=== PATIENT | female | born 1990 | race Caucasian/White ===

== ENCOUNTER → 2016-10-07 | Outpatient (CLI) | payer MEDICAID | LOC: M OUTALCOH 13:26 | PROVIDERS: ATTEND Psychiatry & Neurology Psychiatry | DX: Z13.9 Encounter for screening, unspecified (principal); Z03.89 Encounter for observation for other suspected diseases and conditions ruled out ==

== ENCOUNTER 2016-11-14 20:47 | Outpatient (CLI) | payer MEDICAID, BC ==
[2016-11-14 21:01] VITALS: BP 130/65
[2016-11-14] MEDS ORDERED: ROBI30SU PO (21:36)
[2016-11-14] MEDS ORDERED: PRENTAB9 PO (21:37)
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
== END 2016-11-14 22:00 | disposition home or self-care (01) ==
LOC: M LDO 20:47
PROVIDERS: ATTEND Obstetrics & Gynecology
DX: O26.892 Other specified pregnancy related conditions, second trimester (principal); Z3A.26 26 weeks gestation of pregnancy; O99.512 Diseases of the respiratory system complicating pregnancy, second trimester; R10.2 Pelvic and perineal pain; M32.9 Systemic lupus erythematosus, unspecified; Z79.899 Other long term (current) drug therapy

== ENCOUNTER 2017-01-08 11:12 | Outpatient (CLI) | payer OTHER ==
[~2017-01-08 11:12] MED LIST: PRENTAB9 PO; ROBI30SU PO
--- NOTE | 2017-01-09 01:01 | IPN ---
DATE OF SERVICE: 01/08/2017 CHIEF COMPLAINT: Cramping. HISTORY OF PRESENT ILLNESS: This patient is a 26-year-old 2, para 0-0-1-0 with an estimated due date (JORDAN) of 02/20/2017, who is currently 33 weeks 5 days estimated gestational age, who reports some irregular contractions for the past day. She reports vaginal spotting after intercourse today this morning. Denies any gross vaginal bleeding and leakage of fluid and reports active movement. This is a patient of Lisa Eddy that is also being followed by the center. PAST MEDICAL HISTORY: History of systemic lupus erythematosus. PAST SURGICAL HISTORY: None. PAST OBSTETRICAL HISTORY: She is a 2, para 0. MEDICATIONS: Include Suzanne, vitamins. ALLERGIES: She has no known drug allergies. SOCIAL HISTORY: She reports history of smoking during her . PHYSICAL EXAMINATION: VITAL SIGNS: Stable. She is afebrile. GENERAL APPEARANCE: Well appearing, no acute distress. She has a category 1 rate tracing with some rare contractions on tachometer. ABDOMEN: Soft, gravid and nontender. CERVICAL EXAM: Her cervix is long and closed. Transvaginal showed a cervical length of 1.9 cm. ASSESSMENT: 1. This patient is a 26-year-old 2, para 0 at 33 weeks 5 days estimated gestational age with a shortened cervix, less than 2 cm, unable to obtain a fibronectin secondary to recent intercourse. Otherwise, clinically no signs of labor. 2. Reassuring status. PLAN: I have discussed further monitoring of patient's complaints along with steroids for lung maturity secondary to her shortened cervix. After consultation with patient and her family, she has opted to followup at her primary provider and declines further management for complaints. MTDD
--- NOTE | 2017-01-09 07:38 | REP ---
OB ULTRASOUND: HISTORY: Obtain cervical length measurement. FINDINGS: Multiple ultrasonographic images of the gravid uterus show a single living intrauterine gestation in the cephalic presentation. Doppler interrogation of the heart shows a heart rate of 128 beats per minute. The cervix measures 1.9 cm in length and there was no evidence of internal os funneling. IMPRESSION: Limited OB ultrasound as described above. Signed by Jesse Hernández DO 01/09/2017 09:54 A
== END 2017-01-08 14:01 | disposition home or self-care (01) ==
LOC: M LDO 11:12
PROVIDERS: ATTEND Obstetrics & Gynecology
DX: O47.03 False labor before 37 completed weeks of gestation, third trimester (principal); Z3A.33 33 weeks gestation of pregnancy; M32.9 Systemic lupus erythematosus, unspecified; O26.893 Other specified pregnancy related conditions, third trimester

== ENCOUNTER → 2017-02-11 | Outpatient (CLI) | payer OTHER ==
--- NOTE | 2017-02-11 15:49 | REP ---
Limited obstetric sonography: History: Systemic lupus. well-being. Biophysical profile. Findings: Scanning demonstrates a viable single intrauterine gestation in a cephalic lie. A fundal placenta is seen without evidence of previa or abruption, grade 2. A small pericardial effusion is noted. The closed cervical length is 2.9 cm. heart rate is recorded 171 beats per minute. CATALINA is normal at 14.6 cm. Biophysical profile score is 8 out of a possible 8. S/D ratio in the umbilical cord artery by Doppler is normal at 2.1. Impression: Small amount of pericardial fluid noted in the fetus. Signed by Jerrod Bergman MD 02/11/2017 04:28 P
== END ==
LOC: M RAD 13:34
PROVIDERS: ATTEND Nurse Practitioner Women's Health
DX: M32.9 Systemic lupus erythematosus, unspecified (principal)

== ENCOUNTER 2017-03-30 08:25 | Emergency (ER) | payer OTHER ==
[~2017-03-30] VITALS: Ht 162.6 cm; Wt 75.9 kg
[2017-03-30 09:21] LABS: BASO % 0.3 % (0.0-1.0); EOS # 0.2 K/mm3 (0.0-0.50); EOS % 1.4 % (0.0-3.0); LARGE UNSTAINED CELL # 0.2 K/mm3 (0.0-0.4); LARGE UNSTAINED CELL % 1.6 % (0.0-4.0); LYMPH # 1.9 K/mm3 (1.5-6.5); LYMPH % 16.2 % (24.0-44.0); MEAN CORPUSCULAR HEMOGLOBIN 30.7 pg (27.0-33.0); MEAN CORPUSCULAR VOLUME 93.2 fl (80.0-96.0); MONO # 0.5 K/mm3 (0.0-0.8); MONO % 4.4 % (0.0-5.0); NEUTROPHILS # 8.7 K/mm3 (1.8-7.7); NEUTROPHILS % 76.1 % (36.0-66.0); PLATELET COUNT, AUTOMATED 299 k/mm3 (150-450); RED CELL DISTRIBUTION WIDTH 14.1 % (11.5-14.5); WHITE BLOOD COUNT 11.4 K/mm3 (4.0-10.0)
[2017-03-30 09:39] LABS: ANION GAP 6 MEQ/L (8-16); BLOOD UREA NITROGEN 8 MG/DL (7-18); CALCIUM LEVEL 8.8 MG/DL (8.5-10.1); CARBON DIOXIDE LEVEL 27 MEQ/L (21-32); CHLORIDE LEVEL 103 MEQ/L (98-107); CREATININE FOR GFR 0.79 MG/DL (0.55-1.02); GLOMERULAR FILTRATION RATE > 60.0 (>60); GLUCOSE, FASTING 91 MG/DL (70-105); POTASSIUM SERUM 3.7 MEQ/L (3.5-5.1); SODIUM LEVEL 136 MEQ/L (136-145)
--- NOTE | 2017-03-30 09:57 | REP ---
SUPINE ABDOMEN: 03/30/2017. HISTORY: Lower abdominal pain. Possible constipation. FINDINGS: Small bowel loops are not abnormally dilated. Scattered small amounts of gas. There are scattered stool and gas in the colon without dilatation in a normal pattern. No abnormal soft tissue calcifications, mass or focal bone lesion. IMPRESSION: 1. Negative supine abdomen. No abnormality of the gas pattern, soft tissue calcifications or focal bone lesion. Signed by Topher Hobbs MD 03/30/2017 08:13 P
[2017-03-30] MEDS ORDERED: DULC10SU2 PR (11:07)
[2017-03-30] MEDS ORDERED: MIRA3350 PO (11:07)
[2017-03-30] MEDS ORDERED: CITR1SOL PO (11:07)
[2017-03-30 11:13] VITALS: BP 140/73
== END 2017-03-30 11:18 | disposition home or self-care (01) ==
LOC: M ED 08:25
DX: K59.00 Constipation, unspecified (principal); F17.200 Nicotine dependence, unspecified, uncomplicated

== ENCOUNTER 2017-11-03 19:59 | Emergency (ER) | payer OTHER, SELFPAY | END 2017-11-04 00:30 | disposition left against medical advice (07) | LOC: M ED 19:59 | DX: Z53.21 Procedure and treatment not carried out due to patient leaving prior to being seen by health care provider (principal) ==

== ENCOUNTER → 2017-11-22 | Outpatient (REF) | payer OTHER ==
[2017-11-22 19:24] LABS: CHLAMYDIA DNA AMPLIFICATION NEGATIVE (NEGATIVE); GC DNA AMPLIFICATION NEGATIVE (NEGATIVE)
== END ==
LOC: M LAB REF 16:55
DX: N39.0 Urinary tract infection, site not specified (principal)

== ENCOUNTER → 2018-01-03 | Outpatient (REF) | payer OTHER ==
[2018-01-04 00:11] LABS: CHLAMYDIA DNA AMPLIFICATION POSITIVE (NEGATIVE); GC DNA AMPLIFICATION NEGATIVE (NEGATIVE)
== END ==
LOC: M LAB REF 18:56
DX: A74.9 Chlamydial infection, unspecified (principal)
CPT/HCPCS: 87591

== ENCOUNTER → 2018-06-28 | Outpatient (REF) | payer OTHER, MEDICAID ==
[2018-06-28 19:46] LABS: CHLAMYDIA DNA AMPLIFICATION NEGATIVE (NEGATIVE); GC DNA AMPLIFICATION NEGATIVE (NEGATIVE)
== END ==
LOC: M LAB REF 16:53
DX: Z11.3 Encounter for screening for infections with a predominantly sexual mode of transmission (principal)
CPT/HCPCS: 87591

== ENCOUNTER → 2018-10-21 | Outpatient (REF) | payer OTHER ==
[~2018-10-21] MED LIST changes: +CITR1SOL PO; +DULC10SU2 PR; +ENBR1INJ SC; +METH2.5T48 PO; +MIRA3350 PO
[2018-10-21 17:01] LABS: CHLAMYDIA DNA AMPLIFICATION NEGATIVE (NEGATIVE); GC DNA AMPLIFICATION NEGATIVE (NEGATIVE)
== END ==
LOC: M LAB REF 10:42
PROVIDERS: ATTEND Physician Assistant Medical
DX: Z11.3 Encounter for screening for infections with a predominantly sexual mode of transmission (principal)

== ENCOUNTER → 2019-02-15 | Outpatient (REF) | payer OTHER, MEDICAID ==
[2019-02-15 21:48] LABS: CHLAMYDIA DNA AMPLIFICATION NEGATIVE (NEGATIVE); GC DNA AMPLIFICATION NEGATIVE (NEGATIVE)
== END ==
LOC: M LAB REF 17:29
PROVIDERS: ATTEND Physician Assistant
DX: R30.0 Dysuria (principal)

== ENCOUNTER → 2019-07-10 | Outpatient (REF) | payer OTHER, MEDICAID ==
[2019-07-10 11:47] LABS: APPEARANCE, URINE CLEAR (CLEAR); BACTERIA, URINE AUTO NEGATIVE (NEGATIVE); BILIRUBIN, URINE AUTO NEGATIVE (NEGATIVE); BLOOD, URINE BLOOD NEGATIVE (NEGATIVE); COLOR, URINE YELLOW (YELLOW); GLUCOSE, URINE (UA) AUTO NEGATIVE (NEGATIVE); KETONE, URINE AUTO NEGATIVE (NEGATIVE); LEUKOCYTE ESTERASE, URINE AUTO TRACE (NEGATIVE); MUCUS, URINE SMALL (NEGATIVE); NITRITE, URINE AUTO NEGATIVE (NEGATIVE); PROTEIN, URINE AUTO NEGATIVE (NEGATIVE); RBC, URINE AUTO 2 /HPF (0-3); SPECIFIC GRAVITY URINE AUTO 1.023 (1.002-1.035); SQUAMOUS EPITHELIAL CELL UR AU 2 /HPF (0-6); UROBILINOGEN, URINE AUTO 0.2 mg/dL (0.0-2.0); WBC, URINE AUTO 1 /HPF (0-3)
[2019-07-10 14:44] LABS: CHLAMYDIA DNA AMPLIFICATION NEGATIVE (NEGATIVE); GC DNA AMPLIFICATION NEGATIVE (NEGATIVE)
== END ==
LOC: M LAB REF 11:34
PROVIDERS: ATTEND Physician Assistant Medical
DX: N39.0 Urinary tract infection, site not specified (principal); B96.20 Unspecified Escherichia coli [E. coli] as the cause of diseases classified elsewhere

== ENCOUNTER → 2019-08-06 | Outpatient (REF) | payer OTHER, MEDICAID ==
[2019-08-06 13:11] LABS: HCG, SERUM QUALITATIVE NEGATIVE (NEGATIVE)
[2019-08-06 13:21] LABS: HCG, SERUM QUANTITATIVE < 1.0 MIU/ML
== END ==
LOC: M LAB REF 12:36
PROVIDERS: ATTEND Physician Assistant Medical
DX: Z32.00 Encounter for pregnancy test, result unknown (principal)

== ENCOUNTER → 2019-09-29 | Outpatient (REF) | payer OTHER | LOC: M LAB REF 18:02 | PROVIDERS: ATTEND Physician Assistant | DX: L02.511 Cutaneous abscess of right hand (principal) ==

== ENCOUNTER → 2021-02-18 | Outpatient (REF) | payer OTHER ==
[2021-02-18 13:29] LABS: URINE PREG TEST NEGATIVE (NEGATIVE)
[2021-02-18 13:41] LABS: APPEARANCE, URINE CLEAR (CLEAR); BACTERIA, URINE AUTO 2+ (NEGATIVE); BILIRUBIN, URINE AUTO NEGATIVE (NEGATIVE); BLOOD, URINE BLOOD NEGATIVE (NEGATIVE); COLOR, URINE STRAW (YELLOW); GLUCOSE, URINE (UA) AUTO NEGATIVE (NEGATIVE); KETONE, URINE AUTO NEGATIVE (NEGATIVE); LEUKOCYTE ESTERASE, URINE AUTO NEGATIVE (NEGATIVE); NITRITE, URINE AUTO NEGATIVE (NEGATIVE); PROTEIN, URINE AUTO NEGATIVE (NEGATIVE); RBC, URINE AUTO 0 /HPF (0-3); SPECIFIC GRAVITY URINE AUTO 1.006 (1.002-1.035); SQUAMOUS EPITHELIAL CELL UR AU 0 /HPF (0-6); UROBILINOGEN, URINE AUTO 0.2 mg/dL (0.0-2.0); WBC, URINE AUTO 0 /HPF (0-3)
== END ==
LOC: M LAB REF 12:23
PROVIDERS: ATTEND Physician Assistant
DX: N39.0 Urinary tract infection, site not specified (principal); Z32.00 Encounter for pregnancy test, result unknown

== ENCOUNTER → 2021-07-07 | Outpatient (REF) | payer OTHER ==
[~2021-07-07] MED LIST changes: +AUGM875T28 PO; +PRENTAB53 PO
[2021-07-07 17:41] LABS: HEMATOCRIT 38.9 % (36.0-47.0); HEMOGLOBIN 12.8 g/dl (12.0-15.5); MEAN CORPUSCULAR HEMOGLOBIN 31.4 pg (27.0-33.0); MEAN CORPUSCULAR HGB CONC 32.9 g/dl (32.0-36.5); MEAN CORPUSCULAR VOLUME 95.6 fl (80.0-96.0); PLATELET COUNT, AUTOMATED 298 10^3/uL (150-450); RED BLOOD COUNT 4.07 10^6/uL (4.00-5.40)
[2021-07-07 18:06] LABS: HCG, SERUM QUANTITATIVE 300 MIU/ML
[2021-07-07 18:27] LABS: HEPATITIS B SURFACE ANTIGEN NEGATIVE (NEGATIVE)
[2021-07-07 18:55] LABS: HEPATITIS C VIRUS ABY INDEX < 0.0 INDEX (<0.8); HIV 1&2 SCREEN CENTAUR NEGATIVE (NEGATIVE)
== END ==
LOC: M LAB REF 16:43
PROVIDERS: ATTEND Advanced Practice Midwife
DX: O36.80X0 Pregnancy with inconclusive fetal viability, not applicable or unspecified (principal); Z32.01 Encounter for pregnancy test, result positive

== ENCOUNTER → 2021-07-08 | Outpatient (REF) | payer OTHER | LOC: M LAB REF 17:21 | PROVIDERS: ATTEND Advanced Practice Midwife | DX: O20.0 Threatened abortion (principal); Z3A.00 Weeks of gestation of pregnancy not specified ==

== ENCOUNTER → 2021-07-10 | Outpatient (REF) | payer OTHER | LOC: M LAB REF 11:19 | PROVIDERS: ATTEND Advanced Practice Midwife | DX: O20.0 Threatened abortion (principal); Z3A.00 Weeks of gestation of pregnancy not specified ==

== ENCOUNTER → 2021-07-14 | Outpatient (REF) | payer OTHER | LOC: M LAB REF 12:53 | PROVIDERS: ATTEND Advanced Practice Midwife | DX: O20.0 Threatened abortion (principal) ==

== ENCOUNTER → 2021-07-16 | Outpatient (REF) | payer OTHER ==
[2021-07-16 16:51] LABS: FREE T3 2.8 PG/ML (2.2-4.0); FREE T4 1.01 NG/DL (0.76-1.46); THYROID STIMULATING HORMONE 0.898 uIU/ML (0.358-3.740)
[2021-07-16 17:06] LABS: PROGESTERONE 6.73 NG/ML
== END ==
LOC: M LAB REF 13:01
PROVIDERS: ATTEND Obstetrics & Gynecology
DX: O20.0 Threatened abortion (principal); Z3A.00 Weeks of gestation of pregnancy not specified

== ENCOUNTER → 2021-07-22 | Outpatient (REF) | payer OTHER ==
[2021-07-22 13:07] LABS: HCG, SERUM QUALITATIVE POSITIVE (NEGATIVE)
[2021-07-22 14:58] LABS: HCG, SERUM QUANTITATIVE 6068 MIU/ML
== END ==
LOC: M LAB REF 12:09
PROVIDERS: ATTEND Advanced Practice Midwife
DX: O36.80X0 Pregnancy with inconclusive fetal viability, not applicable or unspecified (principal); O20.0 Threatened abortion; Z3A.00 Weeks of gestation of pregnancy not specified

== ENCOUNTER 2021-07-27 12:08 | Day surgery (SDC) | payer OTHER ==
[~2021-07-27] VITALS: Ht 162.6 cm; Wt 92.4 kg
[~2021-07-27 12:08] MED LIST changes: +LIDOCAINE 2% 100MG/5ML SDV (FOR ANES.) As Ordered ONE; +LR 1,000 ML IV SCH; +MIDAZOLAM INJ 2MG/2ML VIAL (J2250 PER 1MG) As Ordered ONE; +ONDANSETRON 4MG/2ML VIAL As Ordered ONE; +ROCURONIUM BROMIDE 50 MG/5 ML VIAL As Ordered ONE; +SUGAMMADEX SODIUM 500 MG/5 ML VIAL (BRIDION) As Ordered ONE; +dexameTHASONE 4 MG/ML 1ML VIAL (J1100 PER 1MG) As Ordered ONE; +fentaNYL 100 MCG/2 ML INJECTION As Ordered ONE; +propofoL 200 MG/20 ML VIAL As Ordered ONE
[2021-07-27] MEDS ORDERED: BUPIVACAINE/EPIN 0.25% 30 ML VIAL As Ordered ONE (12:51)
[2021-07-27 12:59] LABS: HEMATOCRIT 38.1 % (36.0-47.0); HEMOGLOBIN 12.8 g/dl (12.0-15.5); MEAN CORPUSCULAR HEMOGLOBIN 31.8 pg (27.0-33.0); MEAN CORPUSCULAR HGB CONC 33.6 g/dl (32.0-36.5); MEAN CORPUSCULAR VOLUME 94.5 fl (80.0-96.0); PLATELET COUNT, AUTOMATED 292 10^3/uL (150-450); RED BLOOD COUNT 4.03 10^6/uL (4.00-5.40); WHITE BLOOD COUNT 11.3 10^3/uL (4.0-10.0)
[2021-07-27] MEDS ORDERED: PERC5TAB12 PO (13:29)
[2021-07-27] MEDS ORDERED: ACETAMINOPHEN 650 MG SUPP As Ordered ONE (13:36)
[2021-07-27] MEDS ORDERED: fentaNYL 250 MCG/5 ML INJECTION As Ordered ONE (13:47)
[2021-07-27] MEDS ORDERED: ACETAMINOPHEN 1000MG 100ML IV BTL (OFIRMEV) (J0131 PER 10MG) As Ordered ONE (13:49)
[2021-07-27] MEDS ORDERED: KETOROLAC 60MG 2ML VIAL As Ordered ONE (13:49)
[2021-07-27] MEDS ORDERED: METOCLOPRAMIDE INJ 10MG/2ML VIAL (J2765 PER 1) As Ordered ONE (13:49)
[2021-07-27] MEDS ORDERED: METOCLOPRAMIDE INJ 10MG/2ML VIAL (J2765 PER 1) IV PRN (14:45)
[2021-07-27] MEDS ORDERED: fentaNYL 100 MCG/2 ML INJECTION IV PRN (14:45)
[2021-07-27] MEDS: PERCOCET 5MG/325MG TAB PO PRN ×2 (14:45→15:18)
[2021-07-27] MEDS ORDERED: ONDANSETRON 4MG/2ML VIAL IV PRN (14:45)
[2021-07-27] MEDS ORDERED: LR 1,000 ML IV SCH (14:45)
[2021-07-27] MEDS ORDERED: PERCOCET 5MG/325MG TAB PO PRN (14:50)
[2021-07-27 16:05] VITALS: BP 120/61
[2021-07-27] MEDS ORDERED: IBUPROFEN 800 MG TAB PO SCH (22:00)
== END 2021-07-27 16:15 | disposition home or self-care (01) ==
LOC: M SDC 12:08
PROVIDERS: ATTEND Obstetrics & Gynecology
DX: O00.90 Unspecified ectopic pregnancy without intrauterine pregnancy (principal); N73.6 Female pelvic peritoneal adhesions (postinfective); F17.218 Nicotine dependence, cigarettes, with other nicotine-induced disorders
CPT/HCPCS: 36415; 58660; 59151; 85027; 86850; 86900; 86901; 88305; J1100; J1885; J2250; J2405; J2765; J3010; U0002

== ENCOUNTER → 2021-11-19 | Outpatient (CLI) | payer OTHER ==
[~2021-11-19] MED LIST changes: -LIDOCAINE 2% 100MG/5ML SDV (FOR ANES.) As Ordered ONE; -LR 1,000 ML IV SCH; -MIDAZOLAM INJ 2MG/2ML VIAL (J2250 PER 1MG) As Ordered ONE; -ONDANSETRON 4MG/2ML VIAL As Ordered ONE; +PERC5TAB12 PO; -ROCURONIUM BROMIDE 50 MG/5 ML VIAL As Ordered ONE; -SUGAMMADEX SODIUM 500 MG/5 ML VIAL (BRIDION) As Ordered ONE; -dexameTHASONE 4 MG/ML 1ML VIAL (J1100 PER 1MG) As Ordered ONE; -fentaNYL 100 MCG/2 ML INJECTION As Ordered ONE; -propofoL 200 MG/20 ML VIAL As Ordered ONE
== END ==
LOC: M SLEEP HO 09:55
PROVIDERS: ATTEND Family Medicine Addiction Medicine
DX: R53.83 Other fatigue (principal)

== ENCOUNTER → 2021-12-02 | Outpatient (CLI) | payer OTHER ==
[2021-12-02 09:46] LABS: ESTRADIOL 192.7 PG/ML; PROGESTERONE 20.08 NG/ML
== END ==
LOC: M LAB 07:57
PROVIDERS: ATTEND Obstetrics & Gynecology Reproductive Endocrinology
DX: Z31.49 Encounter for other procreative investigation and testing (principal)

== ENCOUNTER → 2021-12-07 | Outpatient (CLI) | payer OTHER ==
[2021-12-07 09:29] LABS: HCG, SERUM QUANTITATIVE < 1.0 MIU/ML
== END ==
LOC: M LAB 08:36
PROVIDERS: ATTEND Obstetrics & Gynecology Reproductive Endocrinology
DX: Z32.00 Encounter for pregnancy test, result unknown (principal)

== ENCOUNTER → 2021-12-30 | Outpatient (CLI) | payer OTHER ==
[2021-12-30 11:34] LABS: PROGESTERONE 29.91 NG/ML
[2021-12-30 11:35] LABS: ESTRADIOL 1926.6 PG/ML
== END ==
LOC: M LAB 07:35
PROVIDERS: ATTEND Obstetrics & Gynecology Reproductive Endocrinology
DX: Z31.49 Encounter for other procreative investigation and testing (principal)

== ENCOUNTER → 2022-01-04 | Outpatient (CLI) | payer OTHER ==
[2022-01-04 11:18] LABS: PROGESTERONE 23.6 NG/ML
== END ==
LOC: M LAB 08:47
PROVIDERS: ATTEND Obstetrics & Gynecology Reproductive Endocrinology
DX: Z32.00 Encounter for pregnancy test, result unknown (principal)

== ENCOUNTER → 2022-01-06 | Outpatient (CLI) | payer OTHER ==
[2022-01-06 09:06] LABS: THYROID STIMULATING HORMONE 1.59 uIU/ML (0.358-3.740)
[2022-01-06 10:58] LABS: PROGESTERONE 26.45 NG/ML
== END ==
LOC: M LAB 07:57
PROVIDERS: ATTEND Obstetrics & Gynecology Reproductive Endocrinology
DX: Z32.01 Encounter for pregnancy test, result positive (principal)

== ENCOUNTER → 2022-01-08 | Outpatient (CLI) | payer OTHER ==
[2022-01-08 10:12] LABS: PROGESTERONE 23.57 NG/ML
== END ==
LOC: M LAB 09:01
PROVIDERS: ATTEND Obstetrics & Gynecology Reproductive Endocrinology
DX: Z32.01 Encounter for pregnancy test, result positive (principal)

== ENCOUNTER → 2022-01-15 | Outpatient (CLI) | payer OTHER | LOC: M WHC 09:14 | PROVIDERS: ATTEND Obstetrics & Gynecology Reproductive Endocrinology | DX: O09.00 Supervision of pregnancy with history of infertility, unspecified trimester (principal); Z3A.00 Weeks of gestation of pregnancy not specified ==

== ENCOUNTER → 2022-01-15 | Outpatient (CLI) | payer OTHER ==
[2022-01-15 14:12] LABS: ESTRADIOL 34.4 PG/ML
[2022-01-15 14:24] LABS: PROGESTERONE 15.88 NG/ML
== END ==
LOC: M PLALAB 10:55
PROVIDERS: ATTEND Obstetrics & Gynecology Reproductive Endocrinology
DX: O09.00 Supervision of pregnancy with history of infertility, unspecified trimester (principal)

== ENCOUNTER → 2022-01-18 | Outpatient (CLI) | payer OTHER ==
[2022-01-18 11:15] LABS: ESTRADIOL 2048.3 PG/ML; PROGESTERONE 35.22 NG/ML
== END ==
LOC: M RAD 07:48
PROVIDERS: ATTEND Obstetrics & Gynecology Reproductive Endocrinology
DX: Z32.01 Encounter for pregnancy test, result positive (principal)

== ENCOUNTER → 2022-01-25 | Outpatient (CLI) | payer OTHER ==
[2022-01-25 10:22] LABS: ESTRADIOL 892.3 PG/ML; PROGESTERONE 31.51 NG/ML
== END ==
LOC: M RAD 06:58
PROVIDERS: ATTEND Obstetrics & Gynecology Reproductive Endocrinology
DX: Z36.89 Encounter for other specified antenatal screening (principal); Z3A.01 Less than 8 weeks gestation of pregnancy

== ENCOUNTER → 2022-02-02 | Outpatient (CLI) | payer OTHER ==
[2022-02-02 10:30] LABS: ESTRADIOL 1354.8 PG/ML; PROGESTERONE 37.99 NG/ML
== END ==
LOC: M WHC 06:52
PROVIDERS: ATTEND Obstetrics & Gynecology Reproductive Endocrinology
DX: Z32.01 Encounter for pregnancy test, result positive (principal)

== ENCOUNTER → 2022-02-09 | Outpatient (CLI) | payer OTHER | LOC: M LAB 07:48 | PROVIDERS: ATTEND Obstetrics & Gynecology Reproductive Endocrinology | DX: O02.1 Missed abortion (principal) ==

== ENCOUNTER → 2022-02-16 | Outpatient (CLI) | payer OTHER | LOC: M LAB 08:49 | PROVIDERS: ATTEND Obstetrics & Gynecology Reproductive Endocrinology | DX: O02.1 Missed abortion (principal) ==

== ENCOUNTER → 2022-03-01 | Outpatient (CLI) | payer OTHER | LOC: M PLALAB 09:08 | PROVIDERS: ATTEND Obstetrics & Gynecology Reproductive Endocrinology | DX: O02.81 Inappropriate change in quantitative human chorionic gonadotropin (hCG) in early pregnancy (principal) ==

== ENCOUNTER → 2022-03-12 | Outpatient (REF) | payer OTHER ==
[2022-03-12 23:00] LABS: GC DNA AMPLIFICATION NEGATIVE (NEGATIVE)
== END ==
LOC: M LAB REF 21:21
PROVIDERS: ATTEND Physician Assistant
DX: Z20.2 Contact with and (suspected) exposure to infections with a predominantly sexual mode of transmission (principal)

== ENCOUNTER → 2022-06-07 | Outpatient (CLI) | payer OTHER ==
[2022-06-07 09:39] LABS: ESTRADIOL 63.1 PG/ML; FOLLICLE STIMULATING HORMONE 4.9 mIU/mL
[2022-06-10 08:09] LABS: HCG, SERUM QUANTITATIVE < 1.0 MIU/ML
[2022-06-10 08:37] LABS: LUTEINIZING HORMONE 2.7 mIU/mL
[2022-06-10 17:51] LABS: PROGESTERONE 0.48 NG/ML
== END ==
LOC: M LAB 06:53
PROVIDERS: ATTEND Obstetrics & Gynecology Reproductive Endocrinology
DX: Z31.83 Encounter for assisted reproductive fertility procedure cycle (principal)

== ENCOUNTER → 2022-06-08 | Outpatient (CLI) | payer OTHER | LOC: M WHC 09:19 | PROVIDERS: ATTEND Obstetrics & Gynecology Reproductive Endocrinology | DX: Z31.83 Encounter for assisted reproductive fertility procedure cycle (principal) ==

== ENCOUNTER → 2022-06-14 | Outpatient (CLI) | payer OTHER ==
[2022-06-14 11:31] LABS: LUTEINIZING HORMONE 8.7 mIU/mL; PROGESTERONE 0.27 NG/ML
== END ==
LOC: M WHC 06:42
PROVIDERS: ATTEND Obstetrics & Gynecology Reproductive Endocrinology
DX: Z31.83 Encounter for assisted reproductive fertility procedure cycle (principal)

== ENCOUNTER → 2022-06-25 | Outpatient (CLI) | payer OTHER ==
[2022-06-25 11:19] LABS: ESTRADIOL 296.3 PG/ML; PROGESTERONE 17.38 NG/ML
== END ==
LOC: M PLALAB 06:42
PROVIDERS: ATTEND Obstetrics & Gynecology Reproductive Endocrinology
DX: Z31.49 Encounter for other procreative investigation and testing (principal)

== ENCOUNTER → 2022-06-30 | Outpatient (CLI) | payer OTHER ==
[2022-06-30 20:56] LABS: PROGESTERONE 54.46 NG/ML
== END ==
LOC: M PLALAB 06:39
PROVIDERS: ATTEND Obstetrics & Gynecology Reproductive Endocrinology
DX: Z32.00 Encounter for pregnancy test, result unknown (principal)

== ENCOUNTER → 2022-07-02 | Outpatient (REF) | payer OTHER ==
[2022-07-02 11:28] LABS: HCG, SERUM QUANTITATIVE < 1.0 MIU/ML
[2022-07-02 12:46] LABS: ESTRADIOL 114.6 PG/ML
[2022-07-02 13:28] LABS: PROGESTERONE 186.15 NG/ML
== END ==
LOC: M PLALAB 10:02
PROVIDERS: ATTEND Obstetrics & Gynecology Reproductive Endocrinology
DX: Z31.83 Encounter for assisted reproductive fertility procedure cycle (principal)

== ENCOUNTER → 2022-07-09 | Outpatient (CLI) | payer OTHER ==
[2022-07-09 10:01] LABS: HCG, SERUM QUANTITATIVE < 1.0 MIU/ML
[2022-07-09 10:37] LABS: ESTRADIOL 74.9 PG/ML; FOLLICLE STIMULATING HORMONE 5.1 mIU/mL; LUTEINIZING HORMONE 2.3 mIU/mL
== END ==
LOC: M RAD 08:21
PROVIDERS: ATTEND Obstetrics & Gynecology Reproductive Endocrinology
DX: Z31.83 Encounter for assisted reproductive fertility procedure cycle (principal)

== ENCOUNTER → 2022-08-04 | Outpatient (CLI) | payer OTHER ==
[2022-08-04 08:22] LABS: ESTRADIOL 95.5 PG/ML; FOLLICLE STIMULATING HORMONE 5.2 mIU/ML
== END ==
LOC: M RAD 06:38
PROVIDERS: ATTEND Obstetrics & Gynecology Reproductive Endocrinology
DX: N97.9 Female infertility, unspecified (principal)

== ENCOUNTER → 2022-08-10 | Outpatient (CLI) | payer OTHER | LOC: M RAD 06:44 | PROVIDERS: ATTEND Obstetrics & Gynecology Reproductive Endocrinology | DX: N97.9 Female infertility, unspecified (principal); R93.89 Abnormal findings on diagnostic imaging of other specified body structures ==

== ENCOUNTER → 2022-09-24 | Outpatient (CLI) | payer OTHER | LOC: M WHC 09:45 | PROVIDERS: ATTEND Obstetrics & Gynecology Reproductive Endocrinology | DX: Z31.83 Encounter for assisted reproductive fertility procedure cycle (principal); N83.01 Follicular cyst of right ovary; N83.02 Follicular cyst of left ovary ==

== ENCOUNTER → 2022-09-24 | Outpatient (CLI) | payer OTHER ==
[2022-09-24 14:47] LABS: HCG, SERUM QUANTITATIVE < 2.6 MIU/ML (<4.2)
[2022-09-24 14:51] LABS: LUTEINIZING HORMONE 3.1 mIU/ML; PROGESTERONE 0.61 NG/ML
[2022-09-24 14:52] LABS: ESTRADIOL 70.9 PG/ML; THYROID STIMULATING HORMONE 1.355 uIU/ML (0.55-4.78)
== END ==
LOC: M PLALAB 10:50
PROVIDERS: ATTEND Obstetrics & Gynecology Reproductive Endocrinology
DX: Z31.83 Encounter for assisted reproductive fertility procedure cycle (principal)

== ENCOUNTER → 2022-10-11 | Outpatient (CLI) | payer OTHER | LOC: M WHC 07:26 | PROVIDERS: ATTEND Obstetrics & Gynecology Reproductive Endocrinology | DX: Z31.83 Encounter for assisted reproductive fertility procedure cycle (principal) ==

== ENCOUNTER → 2022-10-11 | Outpatient (CLI) | payer OTHER ==
[2022-10-11 11:31] LABS: HCG, SERUM QUANTITATIVE < 2.6 MIU/ML (<4.2)
[2022-10-11 11:35] LABS: FOLLICLE STIMULATING HORMONE 4.8 mIU/ML; THYROID STIMULATING HORMONE 0.747 uIU/ML (0.55-4.78)
[2022-10-11 11:36] LABS: ESTRADIOL 86.7 PG/ML; LUTEINIZING HORMONE 4.6 mIU/ML
[2022-10-11 11:37] LABS: PROGESTERONE 3.85 NG/ML
== END ==
LOC: M PLALAB 08:28
PROVIDERS: ATTEND Obstetrics & Gynecology Reproductive Endocrinology
DX: Z31.83 Encounter for assisted reproductive fertility procedure cycle (principal)

== ENCOUNTER → 2022-10-28 | Outpatient (CLI) | payer OTHER ==
[2022-10-28 09:36] LABS: HCG, SERUM QUANTITATIVE < 2.6 MIU/ML (<4.2)
[2022-10-28 09:40] LABS: LUTEINIZING HORMONE 4.2 mIU/ML; THYROID STIMULATING HORMONE 1.283 uIU/ML (0.55-4.78)
[2022-10-28 09:41] LABS: ESTRADIOL 36.9 PG/ML; FOLLICLE STIMULATING HORMONE 4.5 mIU/ML; PROGESTERONE 0.69 NG/ML
== END ==
LOC: M RAD 08:03
PROVIDERS: ATTEND Obstetrics & Gynecology Reproductive Endocrinology
DX: Z31.83 Encounter for assisted reproductive fertility procedure cycle (principal)

== ENCOUNTER 2022-10-29 22:47 | Emergency (ER) | payer OTHER ==
[2022-10-29 23:59] VITALS: BP 143/103
== END 2022-10-30 03:12 | disposition home or self-care (01) ==
LOC: M ED 22:47
DX: F43.0 Acute stress reaction (principal); R45.851 Suicidal ideations; F41.9 Anxiety disorder, unspecified; Z79.810 Long term (current) use of selective estrogen receptor modulators (SERMs); Z79.899 Other long term (current) drug therapy

== ENCOUNTER → 2022-11-04 | Outpatient (CLI) | payer OTHER ==
[2022-11-04 09:22] LABS: BASO # 0.1 10^3/uL (0.0-0.2); BASO % 0.6 % (0.0-1.0); EOS # 0.2 10^3/uL (0.0-0.5); EOS % 1.9 % (0.0-3.0); HEMATOCRIT 38.1 % (36.0-47.0); HEMOGLOBIN 12.5 g/dl (12.0-15.5); LYMPH # 4.2 10^3/uL (1.5-5.0); LYMPH % 43.4 % (24.0-44.0); MEAN CORPUSCULAR HEMOGLOBIN 31.3 pg (27.0-33.0); MEAN CORPUSCULAR HGB CONC 32.8 g/dl (32.0-36.5); MEAN CORPUSCULAR VOLUME 95.5 fl (80.0-96.0); MONO # 0.7 10^3/uL (0.0-0.8); MONO % 7.5 % (2.0-8.0); NEUTROPHILS # 4.4 10^3/uL (1.5-8.5); NEUTROPHILS % 46.3 % (36.0-66.0); PLATELET COUNT, AUTOMATED 281 10^3/uL (150-450); RED BLOOD COUNT 3.99 10^6/uL (4.00-5.40); WHITE BLOOD COUNT 9.6 10^3/uL (4.0-10.0)
[2022-11-04 10:22] LABS: ERYTHROCYTE SEDIMENTATION RATE 22 mm/hr (0-20)
[2022-11-04 10:40] LABS: ALBUMIN 3.3 G/DL (3.2-5.2); ALKALINE PHOSPHATASE 51 U/L (46-116); ALT/SGPT 42 U/L (7.0-40); AST/SGOT 22 U/L (<34); BILIRUBIN,TOTAL 0.4 MG/DL (0.3-1.2); BLOOD UREA NITROGEN 15 MG/DL (9-23); CALCIUM LEVEL 8.8 MG/DL (8.5-10.1); CARBON DIOXIDE LEVEL 29 MMOL/L (20-31); CHLORIDE LEVEL 103 MMOL/L (98-107); CREATININE FOR GFR 0.98 MG/DL (0.55-1.30); GLOMERULAR FILTRATION RATE > 60.0 (>60); GLUCOSE, FASTING 70 MG/DL (60-100); SODIUM LEVEL 139 MMOL/L (136-145); TOTAL PROTEIN 6.4 G/DL (5.7-8.2)
[2022-11-05 13:08] LABS: ANTINUCLEAR ANTIBODIES DIRECT Negative (Negative)
== END ==
LOC: M LAB 08:18
PROVIDERS: ATTEND Internal Medicine Rheumatology
DX: L40.50 Arthropathic psoriasis, unspecified (principal); M32.9 Systemic lupus erythematosus, unspecified

== ENCOUNTER → 2022-11-04 | Outpatient (CLI) | payer OTHER ==
[2022-11-04 09:56] LABS: ESTRADIOL 284.4 PG/ML; LUTEINIZING HORMONE 8.4 mIU/ML; PROGESTERONE 0.23 NG/ML
== END ==
LOC: M RAD 08:15
PROVIDERS: ATTEND Obstetrics & Gynecology Reproductive Endocrinology
DX: Z31.83 Encounter for assisted reproductive fertility procedure cycle (principal)

== ENCOUNTER → 2022-11-24 | Outpatient (CLI) | payer OTHER ==
[2022-11-24 14:16] LABS: HCG, SERUM QUANTITATIVE < 2.6 MIU/ML (<4.2)
[2022-11-24 14:20] LABS: FOLLICLE STIMULATING HORMONE 2.2 mIU/ML
[2022-11-24 14:21] LABS: ESTRADIOL 422.3 PG/ML; LUTEINIZING HORMONE 2.5 mIU/ML; THYROID STIMULATING HORMONE 0.861 uIU/ML (0.55-4.78)
== END ==
LOC: M PLALAB 09:56
PROVIDERS: ATTEND Obstetrics & Gynecology Reproductive Endocrinology
DX: Z31.49 Encounter for other procreative investigation and testing (principal)

== ENCOUNTER → 2022-11-24 | Outpatient (CLI) | payer OTHER | LOC: M WHC 08:55 | PROVIDERS: ATTEND Obstetrics & Gynecology Reproductive Endocrinology | DX: Z31.49 Encounter for other procreative investigation and testing (principal) ==

== ENCOUNTER → 2023-03-30 | Outpatient (CLI) | payer OTHER | LOC: M WHC 07:17 | PROVIDERS: ATTEND Obstetrics & Gynecology Reproductive Endocrinology | DX: Z31.83 Encounter for assisted reproductive fertility procedure cycle (principal); N97.9 Female infertility, unspecified ==

== ENCOUNTER → 2023-03-30 | Outpatient (CLI) | payer OTHER ==
[2023-03-30 11:06] LABS: HCG, SERUM QUANTITATIVE 2.7 MIU/ML (<4.2)
[2023-03-30 11:11] LABS: ESTRADIOL 59.1 PG/ML; FOLLICLE STIMULATING HORMONE 5.3 mIU/ML; LUTEINIZING HORMONE 2.9 mIU/ML
[2023-03-30 11:12] LABS: THYROID STIMULATING HORMONE 1.583 uIU/ML (0.55-4.78)
[2023-03-30 11:14] LABS: PROGESTERONE 0.62 NG/ML
== END ==
LOC: M PLALAB 08:18
PROVIDERS: ATTEND Obstetrics & Gynecology Reproductive Endocrinology
DX: Z31.83 Encounter for assisted reproductive fertility procedure cycle (principal)

== ENCOUNTER → 2023-04-06 | Outpatient (CLI) | payer OTHER ==
[2023-04-06 11:27] LABS: PROGESTERONE < 0.21 NG/ML
[2023-04-06 11:28] LABS: LUTEINIZING HORMONE 9.9 mIU/ML
[2023-04-06 11:30] LABS: ESTRADIOL 196.1 PG/ML
== END ==
LOC: M PLALAB 07:23
PROVIDERS: ATTEND Obstetrics & Gynecology Reproductive Endocrinology
DX: Z31.83 Encounter for assisted reproductive fertility procedure cycle (principal)

== ENCOUNTER → 2023-04-06 | Outpatient (CLI) | payer OTHER | LOC: M WHC 07:21 | PROVIDERS: ATTEND Obstetrics & Gynecology Reproductive Endocrinology | DX: Z31.83 Encounter for assisted reproductive fertility procedure cycle (principal); N83.01 Follicular cyst of right ovary; N83.02 Follicular cyst of left ovary ==

== ENCOUNTER → 2023-04-15 | Outpatient (CLI) | payer OTHER ==
[2023-04-15 11:42] LABS: ESTRADIOL 970.4 PG/ML
[2023-04-15 11:43] LABS: PROGESTERONE 28.58 NG/ML
== END ==
LOC: M PLALAB 08:00
PROVIDERS: ATTEND Obstetrics & Gynecology Reproductive Endocrinology
DX: Z31.49 Encounter for other procreative investigation and testing (principal)

== ENCOUNTER → 2023-04-21 | Outpatient (CLI) | payer OTHER ==
[2023-04-21 09:56] LABS: PROGESTERONE 23.29 NG/ML
== END ==
LOC: M LAB 08:51
PROVIDERS: ATTEND Obstetrics & Gynecology Reproductive Endocrinology
DX: Z32.00 Encounter for pregnancy test, result unknown (principal)

== ENCOUNTER → 2023-04-25 | Outpatient (CLI) | payer OTHER ==
[2023-04-25 09:29] LABS: HCG, SERUM QUANTITATIVE 302.9 MIU/ML (<4.2)
[2023-04-25 09:33] LABS: THYROID STIMULATING HORMONE 1.973 uIU/ML (0.55-4.78)
[2023-04-25 09:34] LABS: ESTRADIOL 937.9 PG/ML; PROGESTERONE 18.83 NG/ML
== END ==
LOC: M LAB 08:32
PROVIDERS: ATTEND Obstetrics & Gynecology Reproductive Endocrinology
DX: Z32.01 Encounter for pregnancy test, result positive (principal)

== ENCOUNTER → 2023-05-02 | Outpatient (CLI) | payer OTHER ==
[2023-05-02 08:50] LABS: ESTRADIOL 249.3 PG/ML; PROGESTERONE 43.15 NG/ML
[2023-05-02 09:01] LABS: HCG, SERUM QUANTITATIVE 4611.1 MIU/ML (<4.2)
== END ==
LOC: M RAD 07:08
PROVIDERS: ATTEND Obstetrics & Gynecology Reproductive Endocrinology
DX: O34.81 Maternal care for other abnormalities of pelvic organs, first trimester (principal); Z3A.01 Less than 8 weeks gestation of pregnancy; N83.201 Unspecified ovarian cyst, right side; Z32.01 Encounter for pregnancy test, result positive

== ENCOUNTER → 2023-05-11 | Outpatient (CLI) | payer OTHER ==
[2023-05-11 08:33] LABS: ESTRADIOL 155.1 PG/ML
[2023-05-11 08:54] LABS: HCG, SERUM QUANTITATIVE 30376.3 MIU/ML (<4.2); PROGESTERONE 100.7 NG/ML
== END ==
LOC: M RAD 06:46
PROVIDERS: ATTEND Obstetrics & Gynecology Reproductive Endocrinology
DX: O09.01 Supervision of pregnancy with history of infertility, first trimester (principal); Z3A.01 Less than 8 weeks gestation of pregnancy

== ENCOUNTER → 2023-05-24 | Outpatient (CLI) | payer OTHER ==
[2023-05-24 18:05] LABS: HEMATOCRIT 41.8 % (36.0-47.0); HEMOGLOBIN 13.6 g/dl (12.0-15.5); MEAN CORPUSCULAR HEMOGLOBIN 32.2 pg (27.0-33.0); MEAN CORPUSCULAR HGB CONC 32.5 g/dl (32.0-36.5); MEAN CORPUSCULAR VOLUME 99.1 fl (80.0-96.0); PLATELET COUNT, AUTOMATED 297 10^3/uL (150-450); RED BLOOD COUNT 4.22 10^6/uL (4.00-5.40); WHITE BLOOD COUNT 14.2 10^3/uL (4.0-10.0)
[2023-05-24 19:01] LABS: HIV 1&2 SCREEN NEGATIVE (NEGATIVE)
[2023-05-24 19:09] LABS: HEPATITIS C VIRUS ABY INDEX 0.12 INDEX (<0.8)
[2023-05-24 19:35] LABS: GC DNA AMPLIFICATION NEGATIVE (NEGATIVE)
== END ==
LOC: M PLALAB 16:09
PROVIDERS: ATTEND Specialist
DX: Z34.81 Encounter for supervision of other normal pregnancy, first trimester (principal)

== ENCOUNTER → 2023-06-09 | Outpatient (CLI) | payer OTHER, MEDICAID | LOC: M PLALAB 10:11 | PROVIDERS: ATTEND Specialist | DX: Z34.80 Encounter for supervision of other normal pregnancy, unspecified trimester (principal) | CPT/HCPCS: 36415; G0463 ==

== ENCOUNTER → 2023-07-06 | Outpatient (REF) | payer OTHER, MEDICAID ==
[2023-07-06 14:47] LABS: TOTAL PROTEIN,RANDOM URINE 15.7 MG/DL (0.0-14.0)
[2023-07-06 14:52] LABS: CREATININE,RANDOM URINE 195.2 MG/DL
== END ==
LOC: M PLALAB 08:55
PROVIDERS: ATTEND Advanced Practice Midwife
DX: O99.891 Other specified diseases and conditions complicating pregnancy (principal)

== ENCOUNTER → 2023-07-06 | Outpatient (CLI) | payer OTHER, MEDICAID ==
[2023-07-06 14:42] LABS: URIC ACID 4.3 MG/DL (3.1-7.8)
[2023-07-06 14:44] LABS: LDH LACTATE DEHYDROGENASE 194 U/L (120-246)
[2023-07-06 14:45] LABS: ALBUMIN 2.8 G/DL (3.2-5.2); ALKALINE PHOSPHATASE 45 U/L (46-116); ALT/SGPT 68 U/L (7.0-40); AST/SGOT 42 U/L (<34); BILIRUBIN,TOTAL 0.4 MG/DL (0.3-1.2); BLOOD UREA NITROGEN 6 MG/DL (9-23); CALCIUM LEVEL 8.8 MG/DL (8.5-10.1); CARBON DIOXIDE LEVEL 25 MMOL/L (20-31); CHLORIDE LEVEL 105 MMOL/L (98-107); CREATININE FOR GFR 0.61 MG/DL (0.55-1.30); GLOMERULAR FILTRATION RATE > 60.0 (>60); GLUCOSE, FASTING 75 MG/DL (60-100); POTASSIUM SERUM 4.1 MMOL/L (3.5-5.1); SODIUM LEVEL 139 MMOL/L (136-145)
[2023-07-08 06:09] LABS: CARDIOLIPIN IGA ANTIBODY <9 APL U/mL (0-11); CARDIOLIPIN IGG ANTIBODY <9 GPL U/mL (0-14); CARDIOLIPIN IGM ANTIBODY <9 MPL U/mL (0-12); SSA SJOGRENS A <0.2 AI (0.0-0.9); SSB SJOGRENS B <0.2 AI (0.0-0.9)
== END ==
LOC: M PLALAB 09:04
PROVIDERS: ATTEND Advanced Practice Midwife
DX: O99.891 Other specified diseases and conditions complicating pregnancy (principal); Z3A.00 Weeks of gestation of pregnancy not specified
CPT/HCPCS: 36415; 80053; 82247; 82570; 83615; 84156; 84450; 84460; 84550; 85613; 85732; 86147; 86235; 87086; G0463

== ENCOUNTER → 2023-08-05 | Outpatient (CLI) | payer OTHER | LOC: M WHC 09:16 | PROVIDERS: ATTEND Advanced Practice Midwife | DX: O99.891 Other specified diseases and conditions complicating pregnancy (principal); Z3A.19 19 weeks gestation of pregnancy ==

== ENCOUNTER 2023-08-15 14:50 | Outpatient (CLI) | payer OTHER, MEDICAID ==
[~2023-08-15] VITALS: Ht 157.5 cm; Wt 94.9 kg
[2023-08-15] MEDS ORDERED: LORATADINE 10 MG TAB PO ONE (15:00)
[2023-08-15] MEDS ORDERED: MONI2KIT PV (15:06)
[2023-08-15] MEDS ORDERED: HOME MED LIST COMPLETE! XX SCH (15:10)
[2023-08-15 15:13] VITALS: BP 126/67
[2023-08-15] MEDS ORDERED: HUMI40KI SC (15:27)
[2023-08-15 15:53] LABS: APPEARANCE, URINE HAZY (CLEAR); BACTERIA, URINE AUTO NEGATIVE (NEGATIVE); BILIRUBIN, URINE AUTO NEGATIVE (NEGATIVE); BLOOD, URINE BLOOD NEGATIVE (NEGATIVE); COLOR, URINE YELLOW (YELLOW); GLUCOSE, URINE (UA) AUTO NEGATIVE (NEGATIVE); KETONE, URINE AUTO TRACE mg/dL (NEGATIVE); LEUKOCYTE ESTERASE, URINE AUTO 2+ (NEGATIVE); MUCUS, URINE SMALL (NEGATIVE); NITRITE, URINE AUTO NEGATIVE (NEGATIVE); PROTEIN, URINE AUTO NEGATIVE (NEGATIVE); RBC, URINE AUTO 0 /HPF (0-3); SPECIFIC GRAVITY URINE AUTO 1.021 (1.002-1.035); SQUAMOUS EPITHELIAL CELL UR AU 6 /HPF (0-6); UROBILINOGEN, URINE AUTO 0.2 mg/dL (0.0-2.0); WBC, URINE AUTO 0 /HPF (0-3)
[2023-08-15 15:57] LABS: BASO % 0.2 % (0.0-1.0); EOS # 0.6 10^3/uL (0.0-0.5); EOS % 6.4 % (0.0-3.0); HEMOGLOBIN 11.6 g/dl (12.0-15.5); LYMPH # 2.3 10^3/uL (1.5-5.0); LYMPH % 22.8 % (24.0-44.0); MEAN CORPUSCULAR HEMOGLOBIN 32.8 pg (27.0-33.0); MEAN CORPUSCULAR HGB CONC 34.1 g/dl (32.0-36.5); MONO # 0.3 10^3/uL (0.0-0.8); MONO % 3.1 % (2.0-8.0); NEUTROPHILS # 6.6 10^3/uL (1.5-8.5); NEUTROPHILS % 67.2 % (36.0-66.0); PLATELET COUNT, AUTOMATED 246 10^3/uL (150-450); RED BLOOD COUNT 3.54 10^6/uL (4.00-5.40); WHITE BLOOD COUNT 9.9 10^3/uL (4.0-10.0)
[2023-08-15 16:26] LABS: ALBUMIN 2.5 G/DL (3.2-5.2); ALKALINE PHOSPHATASE 73 U/L (46-116); ALT/SGPT 32 U/L (7.0-40); AST/SGOT 22 U/L (<34); BILIRUBIN,TOTAL 0.3 MG/DL (0.3-1.2); BLOOD UREA NITROGEN 8 MG/DL (9-23); CARBON DIOXIDE LEVEL 21 MMOL/L (20-31); CHLORIDE LEVEL 107 MMOL/L (98-107); CREATININE FOR GFR 0.56 MG/DL (0.55-1.30); GLOMERULAR FILTRATION RATE > 60.0 (>60); GLUCOSE, FASTING 78 MG/DL (60-100); SODIUM LEVEL 137 MMOL/L (136-145); TOTAL PROTEIN 5.9 G/DL (5.7-8.2)
[2023-08-15] MEDS ORDERED: diphenhydrAMINE 50MG CAP PO ONE (17:40)
[2023-08-15 19:18] LABS: CHLAMYDIA DNA AMPLIFICATION NEGATIVE (NEGATIVE); GC DNA AMPLIFICATION NEGATIVE (NEGATIVE)
== END 2023-08-15 17:46 | disposition home or self-care (01) ==
LOC: M LDO 14:50
PROVIDERS: ATTEND Advanced Practice Midwife
DX: O26.892 Other specified pregnancy related conditions, second trimester (principal); R21 Rash and other nonspecific skin eruption; O99.712 Diseases of the skin and subcutaneous tissue complicating pregnancy, second trimester; L40.9 Psoriasis, unspecified; M32.9 Systemic lupus erythematosus, unspecified; O09.812 Supervision of pregnancy resulting from assisted reproductive technology, second trimester; O26.22 Pregnancy care for patient with recurrent pregnancy loss, second trimester; O09.212 Supervision of pregnancy with history of pre-term labor, second trimester; Z3A.20 20 weeks gestation of pregnancy
CPT/HCPCS: 36415; 59025; 80053; 81001; 82239; 85025; 87070; 87077; 87086; 87661; 87810; 87850; G0463

== ENCOUNTER → 2023-08-22 | Outpatient (CLI) | payer MEDICAID, OTHER ==
[~2023-08-22] MED LIST changes: +HUMI40KI SC; +MONI2KIT PV
== END ==
LOC: M WHC 08:32
PROVIDERS: ATTEND Obstetrics & Gynecology
DX: Z36.2 Encounter for other antenatal screening follow-up (principal); Z3A.21 21 weeks gestation of pregnancy

== ENCOUNTER → 2023-10-05 | Outpatient (CLI) | payer OTHER, MEDICAID ==
[2023-10-05 14:49] LABS: HEMATOCRIT 33.3 % (36.0-47.0); HEMOGLOBIN 10.7 g/dl (12.0-15.5); MEAN CORPUSCULAR HEMOGLOBIN 31.2 pg (27.0-33.0); MEAN CORPUSCULAR HGB CONC 32.1 g/dl (32.0-36.5); MEAN CORPUSCULAR VOLUME 97.1 fl (80.0-96.0); PLATELET COUNT, AUTOMATED 282 10^3/uL (150-450); RED BLOOD COUNT 3.43 10^6/uL (4.00-5.40); WHITE BLOOD COUNT 8.8 10^3/uL (4.0-10.0)
[2023-10-05 16:32] LABS: CHLAMYDIA DNA AMPLIFICATION NEGATIVE (NEGATIVE); GC DNA AMPLIFICATION NEGATIVE (NEGATIVE)
== END ==
LOC: M PLALAB 09:15
PROVIDERS: ATTEND Obstetrics & Gynecology
DX: O09.813 Supervision of pregnancy resulting from assisted reproductive technology, third trimester (principal); O26.23 Pregnancy care for patient with recurrent pregnancy loss, third trimester; O09.13 Supervision of pregnancy with history of ectopic pregnancy, third trimester; O26.893 Other specified pregnancy related conditions, third trimester; Z3A.28 28 weeks gestation of pregnancy; Z23 Encounter for immunization; Z87.891 Personal history of nicotine dependence
CPT/HCPCS: 36415; 82950; 85027; 86850; 86900; 86901; 87810; 87850; 90471; 90715; G0463

== ENCOUNTER → 2023-11-10 | Outpatient (CLI) | payer OTHER | LOC: M WHC 08:35 | PROVIDERS: ATTEND Obstetrics & Gynecology | DX: O99.113 Other diseases of the blood and blood-forming organs and certain disorders involving the immune mechanism complicating pregnancy, third trimester (principal); Z3A.33 33 weeks gestation of pregnancy ==

== ENCOUNTER 2023-11-23 22:58 | Outpatient (CLI) | payer OTHER, MEDICAID ==
[~2023-11-23] VITALS: Ht 162.6 cm; Wt 96.8 kg
[2023-11-23 23:09] VITALS: BP 132/86; O2SAT 99
[2023-11-23] MEDS ORDERED: HOME MED LIST COMPLETE! XX SCH (23:15)
[2023-11-23 23:49] VITALS: BP 128/74
== END 2023-11-24 ==
LOC: M LDO 22:58
PROVIDERS: ATTEND Advanced Practice Midwife
DX: O47.03 False labor before 37 completed weeks of gestation, third trimester (principal); O99.113 Other diseases of the blood and blood-forming organs and certain disorders involving the immune mechanism complicating pregnancy, third trimester; O09.813 Supervision of pregnancy resulting from assisted reproductive technology, third trimester; O26.23 Pregnancy care for patient with recurrent pregnancy loss, third trimester; O09.13 Supervision of pregnancy with history of ectopic pregnancy, third trimester; O26.893 Other specified pregnancy related conditions, third trimester; M32.9 Systemic lupus erythematosus, unspecified; Z87.51 Personal history of pre-term labor; Z3A.35 35 weeks gestation of pregnancy
CPT/HCPCS: 59025; G0463

== ENCOUNTER → 2023-12-01 | Outpatient (REF) | payer OTHER, MEDICAID | LOC: M SFHCWAGY 12:29 | PROVIDERS: ATTEND Specialist | DX: O99.113 Other diseases of the blood and blood-forming organs and certain disorders involving the immune mechanism complicating pregnancy, third trimester (principal); Z3A.00 Weeks of gestation of pregnancy not specified ==

== ENCOUNTER 2023-12-02 20:43 | Outpatient (CLI) | payer OTHER, MEDICAID ==
[~2023-12-02] VITALS: Ht 162.6 cm; Wt 97.2 kg
[2023-12-02 20:59] VITALS: BP 138/81; O2SAT 97
[2023-12-02] MEDS ORDERED: HOME MED LIST COMPLETE! XX SCH (21:00)
[2023-12-02 21:40] LABS: HEMATOCRIT 29.5 % (36.0-47.0); MEAN CORPUSCULAR HEMOGLOBIN 31.3 pg (27.0-33.0); MEAN CORPUSCULAR HGB CONC 33.9 g/dl (32.0-36.5); MEAN CORPUSCULAR VOLUME 92.5 fl (80.0-96.0); PLATELET COUNT, AUTOMATED 226 10^3/uL (150-450); RED BLOOD COUNT 3.19 10^6/uL (4.00-5.40)
[2023-12-02 21:44] LABS: TOTAL PROTEIN,RANDOM URINE 9.9 MG/DL (0.0-14.0)
[2023-12-02] MEDS: ACETAMINOPHEN 500 MG TAB PO ONE (21:44)
[2023-12-02 21:46] VITALS: BP 116/60
[2023-12-02 21:49] LABS: CREATININE,RANDOM URINE 71.9 MG/DL
[2023-12-02 21:58] LABS: URIC ACID 4.3 MG/DL (3.1-7.8)
[2023-12-02 22:00] LABS: LDH LACTATE DEHYDROGENASE 160 U/L (120-246)
[2023-12-02 22:01] LABS: ALT/SGPT 19 U/L (7.0-40); AST/SGOT 13 U/L (<34); BILIRUBIN,TOTAL 0.4 MG/DL (0.3-1.2); CREATININE FOR GFR 0.67 MG/DL (0.55-1.30); GLOMERULAR FILTRATION RATE > 60.0 (>60)
== END 2023-12-02 22:16 | disposition home or self-care (01) ==
LOC: M LDO 20:43
PROVIDERS: ATTEND Advanced Practice Midwife
DX: O26.893 Other specified pregnancy related conditions, third trimester (principal); O09.813 Supervision of pregnancy resulting from assisted reproductive technology, third trimester; O99.113 Other diseases of the blood and blood-forming organs and certain disorders involving the immune mechanism complicating pregnancy, third trimester; O26.23 Pregnancy care for patient with recurrent pregnancy loss, third trimester; R51.0 Headache with orthostatic component, not elsewhere classified; R03.0 Elevated blood-pressure reading, without diagnosis of hypertension; M32.9 Systemic lupus erythematosus, unspecified; Z3A.36 36 weeks gestation of pregnancy
CPT/HCPCS: 36415; 59025; 82247; 82570; 83615; 84156; 84450; 84460; 84550; 85027; G0463

== ENCOUNTER 2023-12-06 09:11 | Outpatient (CLI) | payer OTHER, MEDICAID ==
[~2023-12-06] VITALS: Ht 162.6 cm; Wt 95.7 kg
[2023-12-06 09:30] VITALS: BP 132/90
[2023-12-06 09:36] VITALS: BP 138/76
[2023-12-06 10:29] VITALS: BP 131/82
== END 2023-12-06 11:00 | disposition home or self-care (01) ==
LOC: M LDO 09:11
PROVIDERS: ATTEND Obstetrics & Gynecology
DX: O36.8339 Maternal care for abnormalities of the fetal heart rate or rhythm, third trimester, other fetus (principal); O99.113 Other diseases of the blood and blood-forming organs and certain disorders involving the immune mechanism complicating pregnancy, third trimester; O09.13 Supervision of pregnancy with history of ectopic pregnancy, third trimester; O26.23 Pregnancy care for patient with recurrent pregnancy loss, third trimester; O09.813 Supervision of pregnancy resulting from assisted reproductive technology, third trimester; O10.013 Pre-existing essential hypertension complicating pregnancy, third trimester; O26.893 Other specified pregnancy related conditions, third trimester; M32.9 Systemic lupus erythematosus, unspecified; Z3A.36 36 weeks gestation of pregnancy
CPT/HCPCS: 59025; G0463

== ENCOUNTER 2024-03-07 19:28 | Emergency (ER) | payer OTHER, MEDICAID ==
[~2024-03-07] VITALS: Ht 162.6 cm; Wt 97.8 kg
[~2024-03-07 19:28] MED LIST changes: +TUMS750C5 PO
[2024-03-07 20:15] LABS: HEMATOCRIT 40.1 % (36.0-47.0); HEMOGLOBIN 13.6 g/dl (12.0-15.5); MEAN CORPUSCULAR HEMOGLOBIN 30.5 pg (27.0-33.0); MEAN CORPUSCULAR HGB CONC 33.9 g/dl (32.0-36.5); MEAN CORPUSCULAR VOLUME 89.9 fl (80.0-96.0); PLATELET COUNT, AUTOMATED 330 10^3/uL (150-450); RED BLOOD COUNT 4.46 10^6/uL (4.00-5.40); WHITE BLOOD COUNT 11.6 10^3/uL (4.0-10.0)
[2024-03-07 20:30] LABS: LIPASE 30 U/L (12-53)
[2024-03-07 20:32] LABS: ALBUMIN 3.9 G/DL (3.2-5.2); ALKALINE PHOSPHATASE 59 U/L (46-116); ALT/SGPT 38 U/L (7.0-40); AST/SGOT 20 U/L (<34); BILIRUBIN,DIRECT 0.2 MG/DL (<0.4); BILIRUBIN,TOTAL 0.7 MG/DL (0.3-1.2); BLOOD UREA NITROGEN 13 MG/DL (9-23); CALCIUM LEVEL 9.6 MG/DL (8.5-10.1); CARBON DIOXIDE LEVEL 22 MMOL/L (20-31); CHLORIDE LEVEL 107 MMOL/L (98-107); CREATININE FOR GFR 1.07 MG/DL (0.55-1.30); GLOMERULAR FILTRATION RATE > 60.0 (>60); GLUCOSE, FASTING 98 MG/DL (60-100); HCG, SERUM QUALITATIVE NEGATIVE (NEGATIVE); POTASSIUM SERUM 3.7 MMOL/L (3.5-5.1); SODIUM LEVEL 140 MMOL/L (136-145); TOTAL PROTEIN 7.1 G/DL (5.7-8.2)
[2024-03-07] MEDS: ONDANSETRON 4MG 2ML VIAL IV ONE (20:44)
[2024-03-07 21:00] LABS: ANISOCYTOSIS 1+; ATYPICAL LYMPH 6 % (0-5); BASOPHILS 1 % (0-1); EOSINOPHILS 3 % (0-3); LYMPHOCYTES 35 % (16-44); MONOCYTES 5 % (0-5); NEUTROPHILS 50 % (28-66); PLATELET ESTIMATE NORMAL (NORMAL)
[2024-03-07] MEDS ORDERED: ISOVUE-370 76% 100ML VIAL As Ordered ONE (21:29)
[2024-03-07] MEDS: KETOROLAC 30 MG/ML 1ML VIAL IV ONE (22:18)
[2024-03-08] MEDS: ONDANSETRON 4MG ORAL DISINTEGRATING TAB PO ONE (00:05)
[2024-03-08] MEDS: OXYCODONE/APAP 5MG/325MG(HOME DOSE PACK) PO ONE (00:05)
[2024-03-08 00:06] VITALS: BP 141/63; TEMP 96.6; O2SAT 94
[2024-03-08] MEDS ORDERED: ONDA-282 PO (00:06)
[2024-03-08] MEDS ORDERED: PERC5TAB12 PO (00:06)
[2024-03-08] MEDS ORDERED: KETO10TAB PO (00:06)
[2024-03-08] MEDS ORDERED: FLOM0.4C39 PO (00:06)
[2024-03-08 00:25] LABS: AMPHETAMINES LEVEL URINE NEGATIVE (NEGATIVE); BARBITURATES URINE NEGATIVE (NEGATIVE); BENZODIAZEPINES URINE NEGATIVE (NEGATIVE); COCAINE METABOLITE URINE NEGATIVE (NEGATIVE); METHADONE URINE NEGATIVE (NEGATIVE)
[2024-03-08 00:26] LABS: OPIATES URINE NEGATIVE (NEGATIVE); PHENCYCLIDINE URINE NEGATIVE (NEGATIVE)
[2024-03-08 00:32] LABS: CANNABINOIDS URINE POSITIVE (NEGATIVE)
[2024-03-09] MEDS ORDERED: OXYB5TAB14 PO (17:10)
[2024-03-09] MEDS ORDERED: KETO10TAB PO (18:42)
[2024-03-09] MEDS ORDERED: TAMS1CAP17 PO (18:42)
[2024-03-09] MEDS ORDERED: ONDA-83 PO (18:42)
[2024-03-09] MEDS ORDERED: PERC5TAB12 PO (18:43)
== END 2024-03-08 00:25 | disposition home or self-care (01) ==
LOC: M ED 19:28
DX: N20.1 Calculus of ureter (principal); F41.9 Anxiety disorder, unspecified; F12.10 Cannabis abuse, uncomplicated; F10.10 Alcohol abuse, uncomplicated; Z79.899 Other long term (current) drug therapy; Z79.83 Long term (current) use of bisphosphonates
CPT/HCPCS: 74177; 80048; 80076; 80307; 81001; 83690; 84703; 85025; 87086; 93005; 96374; 96375; 99284; J1885; J2405; Q9967

== ENCOUNTER → 2024-03-09 | Day surgery (SDC) | payer OTHER, MEDICAID ==
[~2024-03-09] VITALS: Ht 162.6 cm; Wt 90.5 kg
[~2024-03-09] MED LIST changes: +ALBUTEROL SULFATE 2.5MG/0.5ML INH NEB SOLN INH ONE; +FLOM0.4C39 PO; +HOME MED LIST COMPLETE! XX SCH; +KETO10TAB PO; +KETOROLAC 30 MG/ML 1ML VIAL IV ONE; +KETOROLAC 60MG 2ML VIAL As Ordered ONE; +LIDOCAINE 2% 100MG/5ML SDV (FOR ANES.) As Ordered ONE; +LR 1,000 ML IV SCH; +MEPERIDINE 25 MG/ML 1ML VIAL IV PRN; +MIDAZOLAM INJ 2MG/2ML VIAL As Ordered ONE; +ONDA-282 PO; +ONDA-83 PO; +ONDANSETRON 4MG 2ML VIAL IV PRN; +OXYB5TAB14 PO; +TAMS1CAP17 PO; +ceFAZolin 2 GM/D5W 50 ML IV BAG As Ordered ONE; +fentaNYL 100 MCG/2 ML INJECTION As Ordered ONE; +fentaNYL 100 MCG/2 ML INJECTION IV PRN; +propofoL 200 MG/20 ML VIAL As Ordered ONE; +propofoL 500 MG/50 ML VIAL As Ordered ONE
[2024-03-09 11:40] LABS: BASO # 0.1 10^3/uL (0.0-0.2); BASO % 0.5 % (0.0-1.0); EOS # 0.1 10^3/uL (0.0-0.5); EOS % 0.7 % (0.0-3.0); HEMATOCRIT 39.3 % (36.0-47.0); HEMOGLOBIN 13.2 g/dl (12.0-15.5); LYMPH % 14.9 % (24.0-44.0); MEAN CORPUSCULAR HEMOGLOBIN 30.8 pg (27.0-33.0); MEAN CORPUSCULAR HGB CONC 33.6 g/dl (32.0-36.5); MEAN CORPUSCULAR VOLUME 91.8 fl (80.0-96.0); MONO # 0.7 10^3/uL (0.0-0.8); MONO % 4.9 % (2.0-8.0); NEUTROPHILS # 10.7 10^3/uL (1.5-8.5); NEUTROPHILS % 78.5 % (36.0-66.0); PLATELET COUNT, AUTOMATED 286 10^3/uL (150-450); RED BLOOD COUNT 4.28 10^6/uL (4.00-5.40); WHITE BLOOD COUNT 13.6 10^3/uL (4.0-10.0)
[2024-03-09 12:07] LABS: BILIRUBIN,DIRECT 0.2 MG/DL (<0.4); BILIRUBIN,TOTAL 0.7 MG/DL (0.3-1.2); CALCIUM LEVEL 9.5 MG/DL (8.5-10.1); CREATININE FOR GFR 1.19 MG/DL (0.55-1.30); POTASSIUM SERUM 3.3 MMOL/L (3.5-5.1)
[2024-03-09] MEDS: NS 1,000 ML IV ONE (12:45)
[2024-03-09] MEDS: MORPHINE 4 MG/ML 1ML VIAL IV ONE (12:51)
[2024-03-09] MEDS: METOCLOPRAMIDE INJ 10MG/2ML VIAL IV ONE (12:51)
[2024-03-09] MEDS: ceFAZolin SOD 2 GM in IV 1 EA IV ONE (17:20)
[2024-03-09] MEDS: ISOVUE-300 61% 100ML VIAL As Ordered ONE (17:45)
[2024-03-09] MEDS: oxyCODONE 5MG TAB PO PRN (18:37)
[2024-03-09] MEDS: oxyBUTYnin 5 MG TAB PO STA (19:10)
[2024-03-09 19:18] VITALS: BP 139/87; TEMP 98; O2SAT 98
== END | disposition home or self-care (01) ==
LOC: M ED 10:54 → M SDC 15:44
PROVIDERS: ATTEND Urology
DX: N13.2 Hydronephrosis with renal and ureteral calculous obstruction (principal); M32.9 Systemic lupus erythematosus, unspecified; L40.50 Arthropathic psoriasis, unspecified
CPT/HCPCS: 52356; 74176; 74420; 80048; 80076; 81001; 82365; 83605; 83690; 84702; 85025; 87086; 93005; 99285; C1769; C2617; J0690; J1885; J2250; J2765; J3010; Q9967

== ENCOUNTER → 2024-04-03 | Outpatient (REF) | payer OTHER, MEDICAID ==
[~2024-04-03] MED LIST changes: -ALBUTEROL SULFATE 2.5MG/0.5ML INH NEB SOLN INH ONE; -HOME MED LIST COMPLETE! XX SCH; -KETOROLAC 30 MG/ML 1ML VIAL IV ONE; -KETOROLAC 60MG 2ML VIAL As Ordered ONE; -LIDOCAINE 2% 100MG/5ML SDV (FOR ANES.) As Ordered ONE; -LR 1,000 ML IV SCH; -MEPERIDINE 25 MG/ML 1ML VIAL IV PRN; -MIDAZOLAM INJ 2MG/2ML VIAL As Ordered ONE; -ONDANSETRON 4MG 2ML VIAL IV PRN; -ceFAZolin 2 GM/D5W 50 ML IV BAG As Ordered ONE; -fentaNYL 100 MCG/2 ML INJECTION As Ordered ONE; -fentaNYL 100 MCG/2 ML INJECTION IV PRN; -propofoL 200 MG/20 ML VIAL As Ordered ONE; -propofoL 500 MG/50 ML VIAL As Ordered ONE
[2024-04-03 17:17] LABS: APPEARANCE, URINE HAZY (CLEAR); BACTERIA, URINE AUTO NEGATIVE (NEGATIVE); BILIRUBIN, URINE AUTO NEGATIVE (NEGATIVE); BLOOD, URINE BLOOD NEGATIVE (NEGATIVE); COLOR, URINE AMBER (YELLOW); GLUCOSE, URINE (UA) AUTO NEGATIVE (NEGATIVE); KETONE, URINE AUTO TRACE mg/dL (NEGATIVE); LEUKOCYTE ESTERASE, URINE AUTO NEGATIVE (NEGATIVE); MUCUS, URINE LARGE (NEGATIVE); NITRITE, URINE AUTO NEGATIVE (NEGATIVE); PROTEIN, URINE AUTO 1+ mg/dL (NEGATIVE); RBC, URINE AUTO 0 /HPF (0-3); SPECIFIC GRAVITY URINE AUTO 1.028 (1.002-1.035); SQUAMOUS EPITHELIAL CELL UR AU 11 /HPF (0-6); URINE PREG TEST NEGATIVE (NEGATIVE); WBC, URINE AUTO 0 /HPF (0-3)
[2024-04-03 17:57] LABS: Trichomonas vaginalis (AMP) NOT DETECTED (NEGATIVE)
[2024-04-03 18:20] LABS: GC DNA AMPLIFICATION NEGATIVE (NEGATIVE)
== END ==
LOC: M LAB REF 16:14
PROVIDERS: ATTEND Physician Assistant
DX: Z11.3 Encounter for screening for infections with a predominantly sexual mode of transmission (principal)

== ENCOUNTER → 2024-06-02 | Outpatient (REF) | payer OTHER, MEDICAID ==
[2024-06-03 13:04] LABS: APPEARANCE, URINE HAZY (CLEAR); BACTERIA, URINE AUTO 1+ (NEGATIVE); BILIRUBIN, URINE AUTO NEGATIVE (NEGATIVE); BLOOD, URINE BLOOD NEGATIVE (NEGATIVE); COLOR, URINE AMBER (YELLOW); GLUCOSE, URINE (UA) AUTO NEGATIVE (NEGATIVE); KETONE, URINE AUTO TRACE mg/dL (NEGATIVE); LEUKOCYTE ESTERASE, URINE AUTO NEGATIVE (NEGATIVE); MUCUS, URINE SMALL (NEGATIVE); NITRITE, URINE AUTO NEGATIVE (NEGATIVE); PROTEIN, URINE AUTO 1+ mg/dL (NEGATIVE); RBC, URINE AUTO 0 /HPF (0-3); SPECIFIC GRAVITY URINE AUTO 1.029 (1.002-1.035); SQUAMOUS EPITHELIAL CELL UR AU 6 /HPF (0-6); UROBILINOGEN, URINE AUTO 0.2 mg/dL (0.0-2.0); WBC, URINE AUTO 1 /HPF (0-3)
[2024-06-03 14:08] LABS: Trichomonas vaginalis (AMP) NOT DETECTED (NEGATIVE)
== END ==
LOC: M LAB REF 14:30
PROVIDERS: ATTEND Physician Assistant Medical
DX: Z20.2 Contact with and (suspected) exposure to infections with a predominantly sexual mode of transmission (principal)

== ENCOUNTER → 2024-10-04 | Outpatient (CLI) | payer MEDICAID, OTHER | LOC: M RAD 09:27 | PROVIDERS: ATTEND Urology | DX: N20.0 Calculus of kidney (principal) ==

== ENCOUNTER 2025-03-20 23:09 | Emergency (ER) | payer MEDICAID, OTHER ==
[~2025-03-20] VITALS: Ht 162.6 cm; Wt 74.0 kg
[~2025-03-20 23:09] MED LIST changes: -FLOM0.4C39 PO; +TAMS-18 PO
[2025-03-21] MEDS: ACETAMINOPHEN 325 MG TAB PO ONE (02:22)
[2025-03-21 04:00] VITALS: BP 129/71; TEMP 98.1; O2SAT 98
== END 2025-03-21 04:09 | disposition home or self-care (01) ==
LOC: M ED 23:09
DX: S80.211A Abrasion, right knee, initial encounter (principal); S50.312A Abrasion of left elbow, initial encounter; S30.0XXA Contusion of lower back and pelvis, initial encounter; Y04.8XXA Assault by other bodily force, initial encounter; F17.200 Nicotine dependence, unspecified, uncomplicated; F10.10 Alcohol abuse, uncomplicated; Y92.830 Public park as the place of occurrence of the external cause; Y93.89 Activity, other specified; Y99.9 Unspecified external cause status; Z79.899 Other long term (current) drug therapy; Z79.83 Long term (current) use of bisphosphonates